=== PATIENT | male | born 1965 | race Caucasian/White ===

== ENCOUNTER 2021-07-23 10:23 | Emergency (ER) | payer OTHER, SELFPAY ==
--- NOTE | 2021-07-23 10:26 | ED.MALEGU ---
HPI - Male Genitourinary General Chief complaint: Urogenital-Male Stated complaint: uti symptoms Time Seen by Provider: 07/23/21 10:26 Source: patient and RN notes reviewed History of Present Illness HPI Narrative: Patient is a 55-year-old male who presents the urgent care with complaints of a possible UTI. Patient states that 3 weeks ago he started to have some burning with urination and now he is developed some chills. Patient states he also has mild urinary frequency. States that he has chronic recurrent UTIs and has not seen a urologist/gourmet coffee attendant because his doctor told him it was normal considering he has diabetic . Patient denies any blood in the urine, fever, nausea or vomiting. Currently denies of abdominal pain. No other acute complaints. No acute distress noted. Patient aware of the plan of care. Some parts of this dictation were generated by voice recognition software and may contain typographical and/or grammatical inaccuracies. Related Data Home Medications Medication Instructions Recorded Confirmed buspirone mg 07/23/21 clonazepam 07/23/21 gabapentin 07/23/21 insulin lispro SUBCUT 07/23/21 metformin mg 07/23/21 omeprazole 07/23/21 venlafaxine mg 07/23/21 Allergies Allergy/AdvReac Type Severity Reaction Status Date / Time Sulfa (Sulfonamide Allergy Unknown FACE Verified 02/20/17 11:04 Antibiotics) REDNESS AND SWELLING/SOB Review of Systems Review of Systems: CONSTITUTIONAL: Denies fever, chills, or sweats. EYES: Denies visual changes, redness, or discharge. ENT: Denies rhinorrhea, congestion, sore throat, or otalgia. CARDIOVASCULAR: Denies chest pain, palpitations, or edema. RESPIRATORY: Denies cough or dyspnea. GASTROINTESTINAL: Denies abdominal pain, nausea, vomiting, or diarrhea. GENITOURINARY: Reports of dysuria and mild frequency SKIN: Denies rash or itching. MUSCULOSKELETAL: Denies back pain, joint pain, or myalgia. NEUROLOGIC: Denies headache, numbness, or weakness. All other systems reviewed are negative, except as documented in HPI. PMFSH Comments At the time of my signature, I reviewed and agree with the nursing past medical, surgical, social, and family history. There is no relevant family history pertinent to the patient complaint. Exam Narrative: GENERAL: This is a well-nourished, well-developed patient, in no apparent distress. HEAD: normocephalic, atraumatic. EYES: PERRL. Sclera clear/white. Vision is grossly intact. EARS: External ears normal NOSE: External nose normal with no obvious nasal discharge, nares without redness, no rhinorrhea. THROAT: Mucous membranes moist NECK: Neck supple CARDIOVASCULAR: Regular rate and rhythm without murmurs, gallops, or rubs. RESPIRATORY: Clear to auscultation. Breath sounds equal bilaterally. No wheezes, rales, or rhonchi. GASTROINTESTINAL: Abdomen soft, non-tender, nondistended. Bowel sounds are active. SKIN: warm, intact with no suspicious lesions or rash, good texture and turgor. NEURO: awake, alert, and oriented to person, place and time. There were no obvious focal neurologic abnormalities. EXTREMITIES: No clubbing, cyanosis, or edema. BACK: Negative bilateral CVA tenderness Course Course Level of Care: Express Care Visit Vital Signs Vital signs: Vital Signs Temperature 98.1 F 07/23/21 10:35 Pulse Rate 102 H 07/23/21 10:35 Respiratory Rate 16 07/23/21 10:35 Blood Pressure 144/84 H 07/23/21 10:35 Pulse Oximetry 97 07/23/21 10:35 Temperature 98.1 F 07/23/21 10:35 Pulse Rate 102 H 07/23/21 10:35 Respiratory Rate 16 07/23/21 10:35 Blood Pressure 144/84 H 07/23/21 10:35 Pulse Oximetry 97 07/23/21 10:35 Reviewed-patient is informed that they may have pre-hypertension or hypertension based on a blood pressure reading in the department. I recommend the patient call the primary care provider listed on their discharge instructions or a physician of their choice this week to ar
[2021-07-23 10:35] VITALS: BP 144/84; PULSE 102; RESP 16; TEMP 36.7; O2SAT 97
== END 2021-07-23 10:55 | disposition home or self-care (01) ==
PROVIDERS: Emergency Provider Nurse Practitioner Family; PCP Internal Medicine Gastroenterology
DX: N39.0 Urinary tract infection, site not specified (principal); K21.9 Gastro-esophageal reflux disease without esophagitis; E11.9 Type 2 diabetes mellitus without complications
CPT/HCPCS: 81003; 87086; 87147; 87181; 87186; 99203; G0463